=== PATIENT | male | born 1955 | race Caucasian/White ===

== ENCOUNTER 2017-06-05 07:35 | Day surgery (SDC) | payer BC, OTHER ==
[2017-06-05] MEDS: Lactated Ringers 1,000 ML IV SCH (08:42)
[2017-06-05] MEDS ORDERED: Midazolam 1 MG/ML 2 ML SDV IV ONE (09:00)
[2017-06-05] MEDS ORDERED: Propofol 200 MG/20 ML SDV IV ONE (09:00)
--- NOTE | 2017-06-05 09:50 | PCM.OPNOTE ---
- General Post-Op/Procedure Note Date of Surgery/Procedure: 06/05/17 Operative Procedure(s): c scope with bx Findings: descending colon polyp sigmoid colon polyps rectal polyps sigmoid diverticulosis Pre Op Diagnosis: hx of colon polyps. bleeding per rectum Post-Op Diagnosis: descending colon polyp. sigmoid colon polyps. rectal polyps. sigmoid diverticulosis Anesthesia Technique: [facility] [place] Primary Surgeon: Santana Humphreys Anesthesia Provider: Heber Koch Pathology: descending colon polyp sigmoid colon polyps rectal polyps Complications: None Condition: Good Free Text/Narrative:: see dictation
--- NOTE | 2017-06-05 16:05 | OR ---
DATE OF OPERATION: 06/05/2017 SURGEON: Santana Humphreys MD PROCEDURES PERFORMED: Colonoscopy with hot loop and cold forceps biopsy. PREOPERATIVE DIAGNOSES: Personal history of colon polyps and hematochezia. POSTOPERATIVE DIAGNOSES: Descending colon polyp, sigmoid colon polyp, distal sigmoid colon polyp x2, and rectal polyp x4. INDICATIONS FOR PROCEDURE: This is a 61-year-old white male who has a history of adenomatous colon polyps. Recently, he has been having some hematochezia. He was due for a followup scope. He was offered and accepted same. DESCRIPTION OF OPERATION: After an excellent IV sedation was administered, digital rectal exam was performed. No marked abnormality was noted. Flexible colonoscope was inserted to the cecum without difficulty. The prep was excellent. The following findings were noted. Ascending colon, unremarkable. Transverse colon, unremarkable. Descending colon, in the proximal descending colon, a polypoid lesion, biopsied with cold biopsy forceps and sent for permanent. At the proximal sigmoid colon, small pedunculated polyp, biopsied with cold loop snare. Distal sigmoid polyp, a pedunculated polyp, biopsied with the hot loop snare; and a small polypoid lesion, biopsied with cold biopsy forceps, submitted in one container. Rectum, one pedunculated polyp and several hyperplastic-appearing polyps. Pedunculated polyp was biopsied with hot loop snare, and the smaller hyperplastic polyps were biopsied with cold forceps. The patient tolerated the procedure well and was taken to recovery room. /[id number] 1200 /ALDAL
== END 2017-06-05 11:05 | disposition home or self-care (01) ==
LOC: FB.SDS 07:35
PROVIDERS: ATTEND Surgery
DX: K92.1 Melena (principal); D12.4 Benign neoplasm of descending colon; D12.5 Benign neoplasm of sigmoid colon; D12.8 Benign neoplasm of rectum; K63.5 Polyp of colon; K21.9 Gastro-esophageal reflux disease without esophagitis; F17.210 Nicotine dependence, cigarettes, uncomplicated; Z86.010 Personal history of colon polyps; Z79.899 Other long term (current) drug therapy
CPT/HCPCS: 88305; J2250; J2704; J7120

== ENCOUNTER 2018-09-14 10:28 | Emergency (ER) | payer BC, OTHER ==
[2018-09-14] MEDS ORDERED: Heparin Sodium/0.45% NaCl 500 ML IV ONE (10:29)
--- NOTE | 2018-09-14 11:13 | EDM.PDOC ---
ED HPI GENERAL MEDICAL PROBLEM - General Chief Complaint: Respiratory Problem Stated Complaint: SOB Time Seen by Provider: 09/14/18 10:28 Source of Information: Reports: Patient, Family History Limitations: Reports: No Limitations - History of Present Illness INITIAL COMMENTS - FREE TEXT/NARRATIVE: 62 y.o.w.m - smoker- came with his from home after he nearly passed out. Pt is currently treated for pneumonia. Pt's initial O2 on arrival was 86% on RA. Pt has pain at his left ant lower chest wall when taking a deep breath. No N /V/D no Dizziness at this time. No CP. He is coughing up Blood in the past few days, however. No other acute med issues. BP 114/84 Pulse ox 94% on 2 l O2 by NC. RR 18 Pulse 97. Temp 97.9 Onset Date: 09/14/18 Onset Time: 09:00 Duration: Hour(s): Location: Reports: Chest Quality: Reports: Burning, Dull Severity: Moderate Improves with: Reports: Rest Worsens with: Reports: Movement Context: Reports: Other (H/O Pneumonia) Associated Symptoms: Reports: Cough, Shortness of Breath - Related Data Allergies Allergy/AdvReac Type Severity Reaction Status Date / Time No Known Allergies Allergy Verified 09/14/18 10:50 Home Meds: Home Meds Omeprazole 20 mg PO DAILY 06/04/17 [History] Amoxicillin/Potassium Clav [Amox-Clav 500-125 mg Tablet] 1 tab PO TID 09/14/18 [ History] Past Medical History Cardiovascular History: Reports: None Respiratory History: Reports: Bronchitis, Recurrent, Pneumonia, Recurrent Gastrointestinal History: Reports: Colon Polyp, GERD Genitourinary History: Reports: None Musculoskeletal History: Reports: Back Pain, Chronic, Other (See Below) Other Musculoskeletal History: STATES CRUSHED VERTEBRAE Neurological History: Reports: None Psychiatric History: Reports: Panic Attack Endocrine/Metabolic History: Reports: None Hematologic History: Reports: None Immunologic History: Reports: Other (See Below) Other Immunologic History: STATES PROLONGED FEVER 2000. Oncologic (Cancer) History: Reports: None Dermatologic History: Reports: Other (See Below) Other Dermatologic History: ENLARGED GLAND LEFT NECK REMOVED 2000 - Infectious Disease History Infectious Disease History: Reports: Chicken Pox, Measles, Mumps, Rubella - Past Surgical History Head Surgeries/Procedures: Reports: None HEENT Surgical History: Reports: Tonsillectomy GI Surgical History: Reports: Colonoscopy, EGD Neurological Surgical History: Reports: None Dermatological Surgical History: Reports: None Social & Family History - Family History GI: Reports: None - Caffeine Use Caffeine Use: Reports: Coffee, Soda ED ROS GENERAL - Review of Systems Review Of Systems: See Below Constitutional: Reports: No Symptoms HEENT: Reports: No Symptoms Respiratory: Reports: Shortness of Breath, Pleuritic Chest Pain, Hemoptysis Cardiovascular: Reports: No Symptoms Endocrine: Reports: No Symptoms GI/Abdominal: Reports: No Symptoms : Reports: No Symptoms Musculoskeletal: Reports: No Symptoms Skin: Reports: No Symptoms Neurological: Reports: No Symptoms Psychiatric: Reports: No Symptoms Hematologic/Lymphatic: Reports: No Symptoms Immunologic: Reports: No Symptoms ED EXAM, GENERAL - Physical Exam Exam: See Below Exam Limited By: Respiratory Distress General Appearance: Alert, WD/WN, Moderate Distress Eye Exam: Bilateral Eye: Normal Inspection Ears: Normal External Exam Ear Exam: Bilateral Ear: Auricle Normal Nose: Normal Inspection Throat/Mouth: Normal Inspection, Normal Lips, Normal Voice, No Airway Compromise Head: Atraumatic, Normocephalic Neck: Normal Inspection, Supple, Non-Tender, Full Range of Motion Respiratory/Chest: Lungs Clear, Respiratory Distress, Other (left lower chest wall tenderness) Cardiovascular: Normal Peripheral Pulses, Regular Rate, Rhythm Peripheral Pulses: 2+: Brachial (L) GI/Abdominal: Normal Bowel Sounds, Soft, Non-Tender, Pelvis Stable, Splenomegaly (Male) Exam: Deferred Rectal (Males) Exam: Deferred Back Exam: Normal Inspection, Full Range of Motion Extremities: Normal Inspection, Normal Range of Motion, Non-Tender, No Pedal Edema, Normal Capillary Refill Neurological: Alert, Oriented, CN II-XII Intact, Normal Cognition, Normal Gait Psychiatric: Normal Affect, Normal Mood Skin Exam: Warm, Dry, Intact, Normal Color, No Rash Lymphatic: No Adenopathy EKG INTERPRETATION EKG Date: 09/14/18 Time: 11:35 Rhythm: NSR Rate (Beats/Min): 105 [place]: RAD-Right [place] Deviation P-Wave: Present QRS: Normal ST-T: Normal QT: Normal Comparison: NA - No Prior EKG Course - Vital Signs Text/Narrative:: 62 y.o.w.m - smoker- came with his from home after he nearly passed out. Pt is currently treated for pneumonia. Pt's initial O2 on arrival was 86% on RA. Pt has pain at his left ant lower chest wall when taking a deep breath. No N /V/D no Dizziness at this time. No CP. He is coughing up Blood in the past few days, however. No other acute med issues. BP 114/84 Pulse ox 94% on 2 l O2 by NC. RR 18 Pulse 97. Temp 97.9 PE: WNWD W M in Resp distress Imaging: Pulmonary emboly with right heart strain pos lung infarction. Please see extensive report from the Radiologist Labs: D Dimer 9.21 WBC 15.7 Glc 135 Remainder of CBC and BMP were nl Impression: Pulmonary emboly with right heart strain, lung infarction Tx: O2 by NC, Heparin Drip with bolus. NS 1.33 PM Consultation: Dr. Zuluaga, Hospitalist: Transfer to [place] 1.34 pm Consultation: Dr. Reardon, Hospitalist: [place]: Accepted the pt for transfer and further care. Heparin drip with bolus Reexam: Pt improved Plan: Transfer to [place] - Orders/Labs/Meds Orders: Active Orders 24 hr Category Date Time Status EKG Documentation Completion [RC] ASDIRECTED Care 09/14/18 11:05 Active Oxygen Therapy [RC] PRN Care 09/14/18 13:37 Ordered VTE/DVT Education [RC] Click to Edit Care 09/14/18 13:37 Ordered Ang Chest [CT] Stat Exams 09/14/18 12:12 Taken Heparin Sodium/D5W [Heparin 25,000 Units in D5W 500 ML] Med 09/14/18 13:45 Ordered 25,000 units in 500 ml IV TITRATE Resuscitation Status Routine Resus Stat 09/14/18 13:37 Ordered EKG 12 Lead [EK] Routine Ther 09/14/18 11:04 Ordered Medication Orders Heparin Sodium/Dextrose (Heparin 25,000 Units In D5w 500 Ml) 25,000 units in 500 mls @ 26 mls/hr IV TITRATE MARYBETH; Protocol Labs: Laboratory Tests 09/14/18 09/14/18 09/14/18 Range/Units 11:10 11:10 11:10 WBC 15.5 H (4.5-12.0) X10-3/uL RBC 5.64 (4.30-5.75) x10(6)uL Hgb 17.0 (13.5-17.8) g/dL Hct 50.5 (30.0-51.3) % MCV 89.5 (80-96) fL MCH 30.0 (27.7-33.6) pg MCHC 33.6 (32.2-35.4) g/dL RDW 13.0 (11.5-15.5) % Plt Count 311 (125-369) X10(3)uL MPV 7.4 (7.4-10.4) fL Add Manual Diff Yes Neutrophils % (Manual) 77 (46-82) % Band Neutrophils % 1 (0-6) % Lymphocytes % (Manual) 13 (13-37) % Monocytes % (Manual) 8 (4-12) % Eosinophils % (Manual) 1 (0-5) % ESR 2 (0-15) mm/hr PT 10.7 (8.7-11.1) INR 1.10 (0.89-1.13) D-Dimer, Quantitative (0.0-0.59) mg/LFEU Sodium 140 (135-145) mmol/L Potassium 4.4 (3.5-5.3) mmol/L Chloride 105 (100-110) mmol/L Carbon Dioxide 28 (21-32) mmol/L BUN 12 (7-18) mg/dL Creatinine 1.1 (0.70-1.30) mg/dL Est Cr Clr Drug Dosing TNP Estimated GFR (MDRD) > 60 (>60) BUN/Creatinine Ratio 10.9 (9-20) Glucose 117 H (80-116) mg/dL Lactic Acid (0.4-2.2) mmol/L Calcium 8.8 (8.6-10.2) mg/dL Magnesium (1.8-2.5) mg/dL Creatine Kinase (60-160) IU/L Troponin I (<0.017-0.056) ng/mL Amylase (25-115) U/L Urine Color (YELLOW) Urine Appearance (CLEAR) Urine pH (5.0-6.5) Ur Specific Ray (1.010-1.025) Urine Protein (NEGATIVE) mg/dL Urine Glucose (UA) (NORMAL) mg/dL Urine Ketones (NEGATIVE) mg/dL Urine Occult Blood (NEGATIVE) Urine Nitrite (NEGATIVE) Urine Bilirubin (NEGATIVE) Urine Urobilinogen (NEGATIVE) mg/dL Ur Leukocyte Esterase (NEGATIVE) Urine WBC (0-5) Ur Squamous Epith Cells (NS,R,O) Urine Bacteria (NS) 09/14/18 09/14/18 09/14/18 Range/Units 11:10 11:10 11:10 WBC (4.5-12.0) X10-3/uL RBC (4.30-5.75) x10(6)uL Hgb (13.5-17.8) g/dL Hct (30.0-51.3) % MCV (80-96) fL MCH (27.7-33.6) pg MCHC (32.2-35.4) g/dL RDW (11.5-15.5) % Plt Count (125-369) X10(3)uL MPV (7.4-10.4) fL Add Manual Diff Neutrophils % (Manual) (46-82) % Band Neutrophils % (0-6) % Lymphocytes % (Manual) (13-37) % Monocytes % (Manual) (4-12) % Eosinophils % (Manual) (0-5) % ESR (0-15) mm/hr PT (8.7-11.1) INR (0.89-1.13) D-Dimer, Quantitative 9.21 H (0.0-0.59) mg/LFEU Sodium (135-145) mmol/L Potassium (3.5-5.3) mmol/L Chloride (100-110) mmol/L Carbon Dioxide (21-32) mmol/L BUN (7-18) mg/dL Creatinine (0.70-1.30) mg/dL Est Cr Clr Drug Dosing Estimated GFR (MDRD) (>60) BUN/Creatinine Ratio (9-20) Glucose (80-116) mg/dL Lactic Acid 1.2 (0.4-2.2) mmol/L Calcium (8.6-10.2) mg/dL Magnesium (1.8-2.5) mg/dL Creatine Kinase 35 L (60-160) IU/L Troponin I (<0.017-0.056) ng/mL Amylase (25-115) U/L Urine Color (YELLOW) Urine Appearance (CLEAR) Urine pH (5.0-6.5) Ur Specific Ray (1.010-1.025) Urine Protein (NEGATIVE) mg/dL Urine Glucose (UA) (NORMAL) mg/dL Urine Ketones (NEGATIVE) mg/dL Urine Occult Blood (NEGATIVE) Urine Nitrite (NEGATIVE) Urine Bilirubin (NEGATIVE) Urine Urobilinogen (NEGATIVE) mg/dL Ur Leukocyte Esterase (NEGATIVE) Urine WBC (0-5) Ur Squamous Epith Cells (NS,R,O) Urine Bacteria (NS) 09/14/18 09/14/18 09/14/18 Range/Units 11:10 11:10 11:10 WBC (4.5-12.0) X10-3/uL RBC (4.30-5.75) x10(6)uL Hgb (13.5-17.8) g/dL Hct (30.0-51.3) % MCV (80-96) fL MCH (27.7-33.6) pg MCHC (32.2-35.4) g/dL RDW (11.5-15.5) % Plt Count (125-369) X10(3)uL MPV (7.4-10.4) fL Add Manual Diff Neutrophils % (Manual) (46-82) % Band Neutrophils % (0-6) % Lymphocytes % (Manual) (13-37) % Monocytes % (Manual) (4-12) % Eosinophils % (Manual) (0-5) % ESR (0-15) mm/hr PT (8.7-11.1) INR (0.89-1.13) D-Dimer, Quantitative (0.0-0.59) mg/LFEU Sodium (135-145) mmol/L Potassium (3.5-5.3) mmol/L Chloride (100-110) mmol/L Carbon Dioxide (21-32) mmol/L BUN (7-18) mg/dL Creatinine (0.70-1.30) mg/dL Est Cr Clr Drug Dosing Estimated GFR (MDRD) (>60) BUN/Creatinine Ratio (9-20) Glucose (80-116) mg/dL Lactic Acid (0.4-2.2) mmol/L Calcium (8.6-10.2) mg/dL Magnesium 1.8 (1.8-2.5) mg/dL Creatine Kinase (60-160) IU/L Troponin I 0.033 (<0.017-0.056) ng/mL Amylase 33 (25-115) U/L Urine Color (YELLOW) Urine Appearance (CLEAR) Urine pH (5.0-6.5) Ur Specific Ray (1.010-1.025) Urine Protein (NEGATIVE) mg/dL Urine Glucose (UA) (NORMAL) mg/dL Urine Ketones (NEGATIVE) mg/dL Urine Occult Blood (NEGATIVE) Urine Nitrite (NEGATIVE) Urine Bilirubin (NEGATIVE) Urine Urobilinogen (NEGATIVE) mg/dL Ur Leukocyte Esterase (NEGATIVE) Urine WBC (0-5) Ur Squamous Epith Cells (NS,R,O) Urine Bacteria (NS) 09/14/18 Range/Units 12:57 WBC (4.5-12.0) X10-3/uL RBC (4.30-5.75) x10(6)uL Hgb (13.5-17.8) g/dL Hct (30.0-51.3) % MCV (80-96) fL MCH (27.7-33.6) pg MCHC (32.2-35.4) g/dL RDW (11.5-15.5) % Plt Count (125-369) X10(3)uL MPV (7.4-10.4) fL Add Manual Diff Neutrophils % (Manual) (46-82) % Band Neutrophils % (0-6) % Lymphocytes % (Manual) (13-37) % Monocytes % (Manual) (4-12) % Eosinophils % (Manual) (0-5) % ESR (0-15) mm/hr PT (8.7-11.1) INR (0.89-1.13) D-Dimer, Quantitative (0.0-0.59) mg/LFEU Sodium (135-145) mmol/L Potassium (3.5-5.3) mmol/L Chloride (100-110) mmol/L Carbon Dioxide (21-32) mmol/L BUN (7-18) mg/dL Creatinine (0.70-1.30) mg/dL Est Cr Clr Drug Dosing Estimated GFR (MDRD) (>60) BUN/Creatinine Ratio (9-20) Glucose (80-116) mg/dL Lactic Acid (0.4-2.2) mmol/L Calcium (8.6-10.2) mg/dL Magnesium (1.8-2.5) mg/dL Creatine Kinase (60-160) IU/L Troponin I (<0.017-0.056) ng/mL Amylase (25-115) U/L Urine Color Yellow (YELLOW) Urine Appearance Clear (CLEAR) Urine pH 6.0 (5.0-6.5) Ur Specific Ray 1.020 (1.010-1.025) Urine Protein Trace (NEGATIVE) mg/dL Urine Glucose (UA) Normal (NORMAL) mg/dL Urine Ketones Negative (NEGATIVE) mg/dL Urine Occult Blood Negative (NEGATIVE) Urine Nitrite Negative (NEGATIVE) Urine Bilirubin Negative (NEGATIVE) Urine Urobilinogen 1 H (NEGATIVE) mg/dL Ur Leukocyte Esterase Negative (NEGATIVE) Urine WBC 0-5 (0-5) Ur Squamous Epith Cells Occasional (NS,R,O) Urine Bacteria Few H (NS) Meds: Medications Generic Name Dose Route Start Last Admin Trade Name Freq PRN Reason Stop Dose Admin Heparin Sodium/Dextrose 25,000 units in 500 mls @ 26 mls/hr 09/14/18 13:45 Heparin 25,000 Units In D5w 500 Ml IV TITRATE MARYBETH Protocol 1,300 UNITS/HR Discontinued Medications Generic Name Dose Route Start Last Admin Trade Name Freq PRN Reason Stop Dose Admin Heparin Sodium (Porcine) 6,500 units 09/14/18 14:00 Heparin Sodium IV 09/14/18 14:01 ONETIME ONE Iopamidol 75 ml 09/14/18 12:23 09/14/18 12:58 Isovue-370 (76%) IV 09/14/18 12:24 75 ml ONETIME ONE Administration Departure - Departure Time of Disposition: 14:21 Disposition: DC/Tfer to Acute Hospital 02 Condition: Fair Clinical Impression: Pulmonary embolism and infarction - Discharge Information Referrals: Douglas March MD [Primary Care Provider] - Forms: ED Department Discharge - My Orders Last 24 Hours: My Active Orders 09/14/18 11:04 EKG 12 Lead [EK] Routine 09/14/18 11:05 EKG Documentation Completion [RC] ASDIRECTED 09/14/18 12:12 Ang Chest [CT] Stat 09/14/18 13:37 Oxygen Therapy [RC] PRN VTE/DVT Education [RC] Click to Edit Resuscitation Status Routine 09/14/18 13:45 Heparin Sodium/D5W [Heparin 25,000 Units in D5W 500 ML] 25,000 units in 500 ml IV TITRATE - Assessment/Plan Last 24 Hours: My Active Orders 09/14/18 11:04 EKG 12 Lead [EK] Routine 09/14/18 11:05 EKG Documentation Completion [RC] ASDIRECTED 09/14/18 12:12 Ang Chest [CT] Stat 09/14/18 13:37 Oxygen Therapy [RC] PRN VTE/DVT Education [RC] Click to Edit Resuscitation Status Routine 09/14/18 13:45 Heparin Sodium/D5W [Heparin 25,000 Units in D5W 500 ML] 25,000 units in 500 ml IV TITRATE
[2018-09-14] MEDS ORDERED: Iopamidol 755 Mg/ML 75 ML Bottle IV ONE (12:23)
[2018-09-14] MEDS ORDERED: Heparin Sodium/D5W 25,000 UNITS/500 ML BAG IV SCH (13:45)
[2018-09-14] MEDS ORDERED: Heparin Sodium 5,000 Units/ML Vial IV ONE (14:00)
[2018-09-14] MEDS ORDERED: Heparin Sodium/0.45% NaCl 500 ML IV SCH (14:12)
== END 2018-09-14 14:39 ==
LOC: FB.ED 10:28
DX: I26.99 Other pulmonary embolism without acute cor pulmonale (principal); K21.9 Gastro-esophageal reflux disease without esophagitis; Z79.899 Other long term (current) drug therapy; Z98.890 Other specified postprocedural states
CPT/HCPCS: 36415; 71275; 80048; 81001; 82150; 82550; 83605; 83735; 84484; 85025; 85379; 85610; 85651; 93005; 96365; 96375; 99285; J1644; Q9967

== ENCOUNTER 2019-02-18 23:29 | Emergency (ER) | payer BC, MEDICARE ==
--- NOTE | 2019-02-18 23:52 | EDM.PDOC ---
ED HPI GENERAL MEDICAL PROBLEM - General Chief Complaint: General Stated Complaint: light headed Time Seen by Provider: 02/18/19 23:49 Source of Information: Reports: Patient History Limitations: Reports: No Limitations - History of Present Illness INITIAL COMMENTS - FREE TEXT/NARRATIVE: Michael complains of lightheadedness that started 1.5h ago. He was seated on his recliner when it started. Worse with moving his head too quickly. Endorses a mild headache,chronic.No nausea or vomiting. 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 - Related Data Allergies Allergy/AdvReac Type Severity Reaction Status Date / Time No Known Allergies Allergy Verified 02/18/19 23:48 Home Meds: Home Meds Omeprazole 20 mg PO DAILY 06/04/17 [History] Apixaban [Eliquis] 5 mg PO DAILY 02/18/19 [History] Benzonatate 1 - 2 tab PO Q4HR PRN 02/18/19 [History] Past Medical History Cardiovascular History: Reports: None Respiratory History: Reports: Bronchitis, Recurrent, Pneumonia, Recurrent Gastrointestinal History: Reports: Colon Polyp, GERD Genitourinary History: Reports: None Musculoskeletal History: Reports: Back Pain, Chronic, Other (See Below) Other Musculoskeletal History: STATES CRUSHED [place]RAE Neurological History: Reports: None Psychiatric History: Reports: Panic Attack Endocrine/Metabolic History: Reports: None Hematologic History: Reports: None Immunologic History: Reports: Other (See Below) Other Immunologic History: STATES PROLONGED FEVER 2000. Oncologic (Cancer) History: Reports: None Dermatologic History: Reports: Other (See Below) Other Dermatologic History: ENLARGED GLAND LEFT NECK REMOVED 2000 - Infectious Disease History Infectious Disease History: Reports: Chicken Pox, Measles, Mumps, Rubella - Past Surgical History Head Surgeries/Procedures: Reports: None HEENT Surgical History: Reports: Tonsillectomy GI Surgical History: Reports: Colonoscopy, EGD Neurological Surgical History: Reports: None Dermatological Surgical History: Reports: None Social & Family History - Family History Family Medical History: Noncontributory GI: Reports: None - Caffeine Use Caffeine Use: Reports: Coffee, Soda ED ROS GENERAL - Review of Systems Review Of Systems: Comprehensive ROS is negative, except as noted in HPI. ED EXAM, GENERAL - Physical Exam Exam: See Below Exam Limited By: No Limitations General Appearance: Alert, WD/WN, No Apparent Distress Ears: Normal External Exam, Normal Canal, Hearing Grossly Normal, Normal TMs Ear Exam: Bilateral Ear: Auricle Normal, Canal Normal, TM normal Nose: Normal Inspection Throat/Mouth: Normal Inspection Head: Atraumatic Cardiovascular: Normal Peripheral Pulses, Regular Rate, Rhythm, No Edema, No Gallop, No JVD, No Murmur, No Rub GI/Abdominal: Normal Bowel Sounds Neurological: Alert, Oriented, CN II-XII Intact Psychiatric: Normal Affect Skin Exam: Warm Lymphatic: No Adenopathy EKG INTERPRETATION Rhythm: NSR Course - Vital Signs Last Recorded V/S: Last Vital Signs Temp 98.1 F 02/19/19 00:40 Pulse 76 02/19/19 00:40 Resp 18 02/19/19 00:40 BP 118/79 02/19/19 00:40 Pulse Ox 97 02/19/19 00:40 - Orders/Labs/Meds Orders: Active Orders 24 hr Category Date Time Status EKG Documentation Completion [RC] ASDIRECTED Care 02/18/19 23:48 Active EKG 12 Lead [EK] Routine Ther 02/18/19 23:48 Ordered Labs: Laboratory Tests 02/18/19 02/18/19 02/18/19 Range/Units 23:59 23:59 23:59 WBC 8.2 (4.5-12.0) X10-3/uL RBC 5.48 (4.30-5.75) x10(6)uL Hgb 16.2 (13.5-17.8) g/dL Hct 49.0 (30.0-51.3) % MCV 89.5 (80-96) fL MCH 29.6 (27.7-33.6) pg MCHC 33.1 (32.2-35.4) g/dL RDW 13.6 (11.5-15.5) % Plt Count 205 (125-369) X10(3)uL MPV 7.2 L (7.4-10.4) fL Neut % (Auto) 63.2 (46-82) % Lymph % (Auto) 16.7 (13-37) % [place] % (Auto) 11.1 (4-12) % Eos % (Auto) 8 H (1.0-5.0) % Baso % (Auto) 1 (0-2) % Neut # (Auto) 5.0 (1.6-8.3) # Lymph # (Auto) 1.4 (0.6-5.0) # [place] # (Auto) 0.9 (0.0-1.3) # Eos # (Auto) 0.7 (0.0-0.8) # Baso # (Auto) 0.1 (0.0-0.2) # Sodium 142 (135-145) mmol/L Potassium 4.0 (3.5-5.3) mmol/L Chloride 106 (100-110) mmol/L Carbon Dioxide 25 (21-32) mmol/L BUN 13 (7-18) mg/dL Creatinine 1.1 (0.70-1.30) mg/dL Est Cr Clr Drug Dosing 69.13 mL/min Estimated GFR (MDRD) > 60 (>60) BUN/Creatinine Ratio 11.8 (9-20) Glucose 142 H (80-116) mg/dL Calcium 8.9 (8.6-10.2) mg/dL Troponin I < 0.017 L (<0.017-0.056) ng/mL Departure - Departure Time of Disposition: 01:00 Disposition: Home, Self-Care 01 Condition: Good Clinical Impression: Lightheaded - Discharge Information Instructions: Dizziness, [id number] Referrals: Douglas March MD [Primary Care Provider] - Forms: ED Department Discharge Care Plan Goals: Follow up as needed Sepsis Event Note - Evaluation Sepsis Screening Result: No Definite Risk - Focused Exam Vital Signs: Vital Signs Temp Pulse Resp BP Pulse Ox 02/19/19 00:40 98.1 F 76 18 118/79 97 02/18/19 23:30 98.1 F 70 22 H 136/76 96 Date Exam was Performed: 02/19/19 Time Exam was Performed: 06:46 - Problem List & Annotations (1) Lightheaded SNOMED Code(s): 278777789 Code(s): R42 - DIZZINESS AND GIDDINESS Status: Acute - Problem List Review Problem List Initiated/Reviewed/Updated: Yes - My Orders Last 24 Hours: My Active Orders 02/18/19 23:48 EKG Documentation Completion [RC] ASDIRECTED EKG 12 Lead [EK] Routine - Assessment/Plan Last 24 Hours: My Active Orders 02/18/19 23:48 EKG Documentation Completion [RC] ASDIRECTED EKG 12 Lead [EK] Routine Plan: Labs,and EKG were normal. Vitally stable. I discharged him. Possible causes include BPPPV. See PCP tomorrow. Return to ED with any worsening symptoms
== END 2019-02-19 00:42 | disposition home or self-care (01) ==
LOC: FB.ED 23:29
DX: R42 Dizziness and giddiness (principal); K21.9 Gastro-esophageal reflux disease without esophagitis; Z87.01 Personal history of pneumonia (recurrent); Z79.899 Other long term (current) drug therapy; Z98.890 Other specified postprocedural states
CPT/HCPCS: 36415; 80048; 84484; 85025; 93005; 99284-25

== ENCOUNTER 2021-11-16 09:53 | Day surgery (SDC) | payer BC, MEDICARE ==
[2021-11-16] MEDS ORDERED: Midazolam 1 MG/ML 2 ML SDV IV ONE (09:54)
[2021-11-16] MEDS ORDERED: Propofol 200 MG/20 ML SDV IV ONE (09:54)
[2021-11-16] MEDS ORDERED: Lactated Ringers 1,000 ML IV SCH (10:00)
[2021-11-16] MEDS ORDERED: Sodium Chloride 0.9% 10 ML Syringe FLUSH PRN (10:00)
[2021-11-18 11:11] LABS: ADENOVIRUS F 40/41 Not Detected (Not Detected); ASTROVIRUS Not Detected (Not Detected); C DIFFICILE TOXIN A/B Detected (Not Detected); CAMPYLOBACTER Not Detected (Not Detected); CRYPTOSPORIDIUM Not Detected (Not Detected); CYCLOSPORA CAYETANENSIS Not Detected (Not Detected); ENTAMOEBA HISTOLYTICA Not Detected (Not Detected); ENTEROAGGREGATIVE E COLI Not Detected (Not Detected); ENTEROPATHOGENIC E COLI Not Detected (Not Detected); ENTEROTOXIGENIC E COLI Not Detected (Not Detected); GIARDIA LAMBLIA Not Detected (Not Detected); NOROVIRUS GI/GII Not Detected (Not Detected); PLESIOMONAS SHIGELLOIDES Not Detected (Not Detected); ROTAVIRUS A Not Detected (Not Detected); SALMONELLA Not Detected (Not Detected); SAPOVIRUS Not Detected (Not Detected); SHIGA-TOXIN-PRODUCING E COLI Not Detected (Not Detected); SHIGELLA/ENTEROINVASIVE E COLI Not Detected (Not Detected); VIBRIO Not Detected (Not Detected); VIBRIO CHOLERAE Not Detected (Not Detected); YERSINIA ENTEROCOLITICA Not Detected (Not Detected)
== END 2021-11-16 12:48 | disposition home or self-care (01) ==
LOC: FB.SDS 09:53
PROVIDERS: ATTEND Surgery
DX: K52.9 Noninfective gastroenteritis and colitis, unspecified (principal); K57.30 Diverticulosis of large intestine without perforation or abscess without bleeding; C25.2 Malignant neoplasm of tail of pancreas; C78.01 Secondary malignant neoplasm of right lung; C78.7 Secondary malignant neoplasm of liver and intrahepatic bile duct; C79.31 Secondary malignant neoplasm of brain; C79.51 Secondary malignant neoplasm of bone; J44.9 Chronic obstructive pulmonary disease, unspecified; F17.210 Nicotine dependence, cigarettes, uncomplicated; K21.9 Gastro-esophageal reflux disease without esophagitis; Z79.899 Other long term (current) drug therapy; Z88.8 Allergy status to other drugs, medicaments and biological substances; Z98.890 Other specified postprocedural states
CPT/HCPCS: 00811-QZ; 87507; 88305; 89055; J1642; J2250; J2704; J3490; J7120